=== PATIENT | male | born 1990 ===

== ENCOUNTER 2024-08-14 02:44 | Emergency (ER) | payer OTHER ==
[2024-08-14] MEDS ORDERED: Boostrix 0.5 ML (Tdap) VIAL (>/=7 yrs of age) ONE (03:18)
== END 2024-08-14 05:23 | disposition left against medical advice (07) ==
LOC: ERS 02:44
DX: S00.81XA Abrasion of other part of head, initial encounter (principal); S00.31XA Abrasion of nose, initial encounter; V49.9XXA Car occupant (driver) (passenger) injured in unspecified traffic accident, initial encounter
CPT/HCPCS: 90715; 99283